=== PATIENT | female | born 1945 | race Caucasian/White ===

== ENCOUNTER 2019-02-17 08:57 | Emergency (ER) | payer MEDICARE ==
[~2019-02-17] VITALS: Ht 170.2 cm; Wt 89.0 kg
--- NOTE | 2019-02-17 09:26 | NUR ---
THIS IS A 73 YO FEMALE WHO PRESENTS TO THE ER AFTER A MGLF AROUND APPROX 2300 LAST NIGHT. PT HAS LAC APPROX 2 CM LENGTHWISE ON NOSE. PT HAS BILAT BRUISING AROUND EYES. PT AO X 4. DENIES LOC. SKIN PWD. RESP EVEN AND EQAUL. NAD NOTED. [facility]MD LAW AT BEDSIDE FOR EVAL. REPORT TO [facility] WHO ASSUMED CARE OF PT.
[2019-02-17] MEDS ORDERED: LIDOCAINE 1%, 10ML INFIL ONE (09:30)
[2019-02-17] MEDS ORDERED: DIPH,PERTUSS(ACELL),TET VAC/PF 0.5 ML IM-VACC ONE ×3 (09:30→10:08)
--- NOTE | 2019-02-17 10:29 | NUR ---
Resting in [facility]. VSS. No needs.
[2019-02-17] MEDS ORDERED: LIDOCAINE-MPF 1%, 5ML ONE (10:47)
[2019-02-17 11:21] VITALS: BP 150/73
[2019-02-17] MEDS ORDERED: BACITRACIN ZINC OINT 500U/GM, 0.9 GM ONE (11:38)
--- NOTE | 2019-02-17 11:44 | NUR ---
Patient/Caregiver given discharge instructions and they have confirmed that they understand the instructions. Patient ambulatory with steady gait.
[2019-02-17] MEDS ORDERED: BACITRACIN ZINC OINT 500U/GM, 0.9 GM TP ONE (12:00)
== END 2019-02-17 11:45 | disposition home or self-care (01) ==
LOC: ED 11:39
DX: S01.21XA Laceration without foreign body of nose, initial encounter (principal); I10 Essential (primary) hypertension; W19.XXXA Unspecified fall, initial encounter; Y93.89 Activity, other specified; Y92.009 Unspecified place in unspecified non-institutional (private) residence as the place of occurrence of the external cause; Y99.8 Other external cause status
CPT/HCPCS: 12011; 70160; 90471; 90715